=== PATIENT | female | born 1990 | race African-American/Black ===

== ENCOUNTER 2020-08-26 15:48 | Emergency (ER) | payer OTHER ==
[~2020-08-26] VITALS: Ht 167.6 cm; Wt 87.5 kg
[2020-08-26 16:05] VITALS: BP 127/81
--- NOTE | 2020-08-26 16:15 | NUR ---
ED Nurse Note: Patient walked in to ER from home, stated "I have heart palpitations for 3 days, it feels like my heart skiping the beat. " Patient presented anxious, AAO x4, all VSS at this time.
--- NOTE | 2020-08-26 16:18 | NUR ---
ED Nurse Note: IV line was established on right AC 20ga, blood and urine collected sent to lab
[2020-08-26] MEDS ORDERED: Ketorolac 30mg Inj IV ONE (16:30)
--- NOTE | 2020-08-26 16:44 | Diagnostic Imaging Report ---
Indication: Chest pain Technique: XRAY Chest 1v Comparison: None Findings: Heart size and mediastinal contours are within normal limits for AP technique. There is no focal airspace consolidation, pneumothorax or pleural effusion. Osseous structures demonstrate no acute abnormality. Impression: No radiographic evidence of acute cardiopulmonary disease.
[2020-08-26 17:15] LABS: BASOPHILS % (AUTO) 1.4 % (0.0-2.0); EOSINOPHILS % (AUTO) 3.2 % (0.0-3.0); HEMATOCRIT 37.3 % (37.0-47.0); HEMOGLOBIN 12.2 G/DL (12.0-16.0); LYMPHOCYTES % (AUTO) 30.3 % (20.0-45.0); MEAN CORPUSCULAR VOLUME 93 FL (80-99); NEUTROPHILS % (AUTO) 61.1 % (45.0-75.0); PLATELET COUNT 225 K/UL (150-450); RED CELL DISTRIBUTION WIDTH 12.5 % (11.6-14.8); WHITE BLOOD COUNT 8.5 K/UL (4.8-10.8)
[2020-08-26 17:38] LABS: BILIRUBIN, URINE NEGATIVE (NEGATIVE); COLOR,URINE PALE YELLOW; GLUCOSE, URINE (UA) NEGATIVE (NEGATIVE); KETONES,URINE NEGATIVE (NEGATIVE); LEUKOCYTE ESTERASE ,URINE NEGATIVE (NEGATIVE); NITRITE,URINE NEGATIVE (NEGATIVE); PH,URINE 7 (4.5-8.0); PROTEIN,URINE 1+ (NEGATIVE); UROBILINOGEN,URINE NORMAL MG/DL (0.0-1.0)
[2020-08-26 18:20] LABS: APPEARANCE,URINE SLIGHTLY CLOUDY
--- NOTE | 2020-08-26 18:37 | Emergency Room Report ---
History of Present Illness General Chief Complaint: Palpitations Source: Patient Present Illness HPI 30-year-old female with history here complaining of sudden onset of chest pain that started earlier today. Denies any drug use however reports that she smokes tobacco on daily basis. Patient is obese. Reports that she eats spicy and acidic food. Reports the pain is worse at rest. Denies any pain radiation. Denies shortness of breath, headache and dizziness. Denies any urinary symptoms. Denies . Denies any cardiac history. 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 COVID-19 Screening: Negative COVID-19 Patient History Past Medical History: see triage record Past Surgical History: none Pertinent Family History: none Social History: Reports: smoking Now: No Immunizations: UTD Reviewed Nursing Documentation: PMH: Agreed; PSxH: Agreed Nursing Documentation-PMH Past Medical History: No Stated History Review of Systems All Other Systems: negative except mentioned in HPI Physical Exam Vital Signs Date Time Temp Pulse Resp B/P (MAP) Pulse Ox O2 Delivery O2 Flow Rate FiO2 08/26/20 15:54 97.7 82 18 127/81 (96) 99 Room Air Sp02 EP Interpretation: reviewed, normal General Appearance: no apparent distress, alert, GCS 15, non-toxic Head: normocephalic, atraumatic Eyes: bilateral eye normal inspection, bilateral eye PERRL ENT: hearing grossly normal, normal pharynx, no angioedema, normal voice Neck: full range of motion, supple/symm/no masses Respiratory: chest non-tender, lungs clear, normal breath sounds, speaking full sentences Cardiovascular #1: regular rate, rhythm, no edema Cardiovascular #2: 2+ carotid (R), 2+ carotid (L), 2+ radial (R), 2+ radial (L), 2+ dorsalis pedis (R), 2+ dorsalis pedis (L) Gastrointestinal: normal bowel sounds, non tender, soft, non-distended, no guarding, no rebound Rectal: deferred Genitourinary: no CVA tenderness Musculoskeletal: back normal, no calf tenderness Neurologic: alert, motor strength/tone normal, oriented x3, sensory intact, responsive, speech normal Psychiatric: judgement/insight normal, memory normal, mood/affect normal, no suicidal/homicidal ideation Skin: no rash Lymphatic: no adenopathy Medical Decision Making PA Attestation ALL Diagnosis and treatment plan reviewed and discussed with my supervising physician Dr. Azar Diagnostic Impression: Primary Impression: Cocaine abuse Additional Impression: Chest pain ER Course 30-year-old female with history here complaining of sudden onset of chest pain that started earlier today. Denies any drug use however reports that she smokes tobacco on daily basis. Patient is obese. Reports that she eats spicy and acidic food. Reports the pain is worse at rest. Denies any pain radiation. Denies shortness of breath, headache and dizziness. Denies any urinary sympto ms. Denies . Denies any cardiac history. Ddx considered but are not limited to: [place], Angina, COPD, GERD, Vital signs: are WNL, pt. is afebrile H&PE are most consistent with nonspecific chest pain, cocaine abuse ORDERS: EKG, Chest XR, troponin, CBC, CMP, UA, tox screen, urine test, Motrin, Pepcid ED INTERVENTIONS: Toradol Patient also was eating numerous chocolates as I entered the room to discuss cocaine abuse with her and reported that the pain got worse after eating tacos. Advised patient to avoid eating greasy and spicy food. 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 Advised her to return to emergency room worsening symptoms DISCHARGE: At this time pt. is stable for d/c to home. Will provide printed patient care instructions, and any necessary prescriptions. Care plan and follow up instructions have been discussed with the patient prior to discharge. EKG Diagnostic Results Rate: normal Rhythm: NSR ST Segments: no acute changes Other Impression No acute ST changes ASA given to the pt in ED: No Chest X-Ray Diagnostic Results Chest X-Ray Diagnostic Results : Chest X-Ray Ordered: Yes # of Views/Limited/Complete: 1 View Indication: Chest Pain EP Interpretation: Yes PA Xray: Interpretation reviewed, by supervising MD, and agrees with findings. Interpretation: no consolidation, no effusion, no pneumothorax Impression: No acute disease Electronically Signed by: Rosi Sanon PA-C Last Vital Signs Date Time Temp Pulse Resp B/P (MAP) Pulse Ox O2 Delivery O2 Flow Rate FiO2 08/26/20 17:15 97.7 08/26/20 16:05 76 18 127/81 99 Room Air Disposition: HOME, SELF-CARE Condition: Stable Scripts Famotidine* (Pepcid 20mg tablet*) 20 Mg Tablet 20 MG ORAL DAILY for Gerd, #30 TAB 0 Refills Prov: Rosi Pettit 08/26/20 Ibuprofen* (MOTRIN*) 600 Mg Tablet 600 MG ORAL Q8H PRN for FOR PAIN, #30 TAB 0 Refills Prov: Rosi Pettit 08/26/20 Referrals: [facility],REFERRING (PCP) Patient Instructions: Nonspecific Chest Pain, Stimulant Use Disorder-Cocaine Additional Instructions: Take medication as directed, follow-up with your primary care provider, if worsening symptoms return to the emergency room Rosi Pettit Aug 26, 2020 18:37
[2020-08-26] MEDS ORDERED: IBUPROFEN600 M1 ORAL (18:45)
[2020-08-26] MEDS ORDERED: FAMOTIDINE20 MG ORAL (18:45)
[2020-08-26 19:00] VITALS: BP 127/81
--- NOTE | 2020-08-26 19:00 | NUR ---
ER DISCHARGE NOTE: Patient is cleared to be discharged per ERMD, pt is aox4, on room air, with stable vital signs. pt was given dc and prescription instructions, pt was able to verbalize understanding, pt id band and iv site removed without complications. pt is able to ambulate with steady gait. pt took all belongings.
--- NOTE | 2020-08-28 20:40 | Cardiology Report ---
APPROVED REPORT EKG Measurement Heart [id number] <Conclusion> Normal sinus rhythm Normal ECG
== END 2020-08-26 19:01 | disposition home or self-care (01) ==
LOC: EMR 16:57
DX: F14.10 Cocaine abuse, uncomplicated (principal); R07.9 Chest pain, unspecified; F17.200 Nicotine dependence, unspecified, uncomplicated; E66.9 Obesity, unspecified; Z68.31 Body mass index [BMI] 31.0-31.9, adult; Z88.1 Allergy status to other antibiotic agents
CPT/HCPCS: 36415; 71045; 80307; 81003; 81025; 84484; 85025; 93005; 96374; G0480; J1885; Z7502; 99284